=== PATIENT | female | born 2000 | race Caucasian/White ===

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

== ENCOUNTER 2022-06-23 14:27 | Emergency (ER) | payer MEDICAID, SELFPAY ==
[2022-06-23 15:00] VITALS: BP 118/80; PULSE 82; RESP 18; TEMP 36.6; O2SAT 100; BMI 26.4
--- NOTE | 2022-06-23 15:05 | ED.GENADULT ---
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 She was seen by an Urgent Care and prescribed keflex. There has been no improvement. She states the area has gotten increasingly tender and large. It is red and warm. She thinks it might have been a little bit of drainage from the area but it is too tender for her to try to express any pus. She denies any fever or chills. No history of IVDA. <FRANKO Chauhan - Last Filed: 06/23/22 16:41> complaint: left upper thigh abscess <FRANKO Chauhan - Last Filed: 06/23/22 16:41> Onset (ago): day(s) (6) <RFANKO Chauhan - Last Filed: 06/23/22 16:41> Location: left and lower extremity <FRANKO Chauhan - Last Filed: 06/23/22 16:41> Radiation: non-radiation <FRANKO Chauhan - Last Filed: 06/23/22 16:41> Severity: moderate <FRANKO Chauhan Last Filed: 06/23/22 16:41> Severity scale (1-10): 7 <FRANKO Chauhan - Last Filed: 06/23/22 16:41> Quality: aching <FRANKO Chauhan - Last Filed: 06/23/22 16:41> Pain Consistency: constant <FRANKO Chauhan - Last Filed: 06/23/22 16:41> Relieving factors: immobilization and rest <FRANKO Chauhan - Last Filed: 06/23/22 16:41> Exacerbating factors: movement <FRANKO Chauhan - Last Filed: 06/23/22 16:41> Associated symptoms: denies other symptoms <FRANKO Chauhan - Last Filed: 06/23/22 16:41> Treatments prior to arrival: other (Keflex) <FRANKO Chauhan - Last Filed: 06/23/22 16:41> Related Data Home medications: Previous Rx's Medication Instructions Recorded doxycycline hyclate 100 mg tablet 100 mg PO BID 7 days #14 tabs 06/23/22 <Fernando Lisa MD - Last Filed: 06/23/22 15:08> Allergies/adverse reactions: Allergies Allergy/AdvReac Type Severity Reaction Status Date / Time No Known Allergies Allergy Unverified 04/18/20 17:20 <Fernando Lisa MD - Last Filed: 06/23/22 15:08> Review of Systems Review of Systems: Constitutional: No Fever, No Chills Cardiovascular: No Chest Pain, No SOB Gastrointestinal: No Nausea, No Vomiting Musculoskeletal: No joint pain, No Myalgias Skin: +Skin Lesions, No rash Neuro: No Weakness Psych: + Anxiety/Panic Heme/Lymph: No Bruising, No Lymphadenopathy <FRANKO Chauhan - Last Filed: 06/23/22 16:41> [facility] Social History Social History: Social History Advance Directives: No Advance Directives Information Provided: No <Fernando Lisa MD - Last Filed: 06/23/22 15:08> Physical Exam ED Vital Signs: Vital Signs - 24 hr 06/23/22 15:00 Temperature 97.9 F Pulse Rate 82 Respiratory Rate 18 Blood Pressure 118/80 Pulse Oximetry 100 Oxygen Delivery Method Room Air BMI result Body Mass Index 26.4 <Fernando Lisa MD - Last Filed: 06/23/22 15:08> Vital Signs - 24 hr 06/23/22 15:00 Temperature 97.9 F Pulse Rate 82 Respiratory Rate 18 Blood Pressure 118/80 Pulse Oximetry 100 Oxygen Delivery Method Room Air BMI result Body Mass Index 26.4 <FRANKO Chauhan - Last Filed: 06/23/22 16:41> Appearance: Alert. Oriented X3. No acute distress. HEENT: normal inspection CVS: Normal heart rate and rhythm. Pulses normal. Respiratory: No respiratory distress. Skin: Skin warm and dry. Normal skin color. Normal skin turgor. No rashes. Extremities: Left upper inner thigh with a approximately 6 cm area of tenderness, erythema and warmth, centrally there is an area of fluctuance and dry discharge, dark in color. Induration approximately 1-2 cm surrounding the fluctuant area circumferentially. Neuro: Oriented X 3. Grossly normal, nonfocal, anxious. <FRANKO Chauhan - Last Filed: 06/23/22 16:41> Course Reevaluation(s) Reevaluation #1: 21 yo female with PMH of MRSA c/o sore on left leg. Patient seen yesterday at [facility] and prescribed keflex, but no antibiotics with MRSA coverage. Here today with increased pain, not improving. MRSA swab ordered <Fernando Lisa MD - Last Filed: 06/23/22 15:08> Time: 15:07 <Fernando Lisa MD - Last Filed: 06/23/22 15:08> Reevaluation #2: 21-year-old female pen to the ER for evaluation of an abscess on her left upper thigh. There is surrounding cellulitic changes. Amenable to incision and drainage today. History of MRSA in the past so will treat as such. No signs or symptoms of systemic illness. <FRANKO Chauhan - Last Filed: 06/23/22 16:41> Reevaluation #3: Started on doxycycline. Tolerated procedure well. Stable for discharge home. Return precautions were discussed. <FRANKO Chauhan - Last Filed: 06/23/22 16:41> Medications Administered Discontinued Medications Generic Name Dose Route Start Last Admin Trade Name Freq PRN Reason Stop Dose Admin Doxycycline Monohydrate 100 mg 06/23/22 15:26 06/23/22 15:39 Doxycycline Monohydrate 100 Mg Capsule PO 06/23/22 15:27 100 mg ONCE ONE Administration Ibuprofen 600 mg 06/23/22 15:26 06/23/22 15:39 Ibuprofen 600 Mg Tablet PO 06/23/22 15:27 600 mg ONCE ONE Administration <Fernando Lisa MD - Last Filed: 06/23/22 15:08> Medications Administered Discontinued Medications Generic Name Dose Route Start Last Admin Trade Name Rosales LOMAX Reason Stop Dose Admin Doxycycline Monohydrate 100 mg 06/23/22 15:26 06/23/22 15:39 Doxycycline Monohydrate 100 Mg Capsule PO 06/23/22 15:27 100 mg ONCE ONE Administration Ibuprofen 600 mg 06/23/22 15:26 06/23/22 15:39 Ibuprofen 600 Mg Tablet PO 06/23/22 15:27 600 mg ONCE ONE Administration <FRANKO Chauhan - Last Filed: 06/23/22 16:41> Procedures Abscess I/D Site: lower extremity <FRANKO Chauhan - Last Filed: 06/23/22 16:41> Side (if applicable): left <FRANKO Chauhan - Last Filed: 06/23/22 16:41> Local Anesthetic: lidocaine 1% <FRANKO Chauhan - Last Filed: 06/23/22 16:41> Amount of anesthesia used (mL): 1 <FRANKO Chauhan - Last Filed: 06/23/22 16:41> Technique: incised with blade <FRANKO Chauhan - Last Filed: 06/23/22 16:41> Sent for culture/gram staining?: No <FRANKO Chauhan - Last Filed: 06/23/22 16:41> Irrigation: Yes <FRANKO Chauhan - Last Filed: 06/23/22 16:41> Packing used?: none <FRANKO Chauhan - Last Filed: 06/23/22 16:41> Critical Care Time Critical Care Time Critical Care Time: No <FRANKO Chauhan - Last Filed: 06/23/22 16:41> Discharge Plan Discharge Clinical Impression: Abscess of left thigh <Fernando Lisa MD - Last Filed: 06/23/22 15:08> Patient Disposition: Home, Self-Care <Fernando Lisa MD - Last Filed: 06/23/22 15:08> Instructions: Abscess Incision and Drainage (DC) <Fernando Lisa MD - Last Filed: 06/23/22 15:08> Additional Instructions: Take the prescribed doxycycline starting tomorrow morning. Your given 1st dose today in the ER. Use warm compresses to the area several times per day. Continue taking her previously prescribed Keflex. Take Tylenol Motrin as needed for pain. If you develop new or worsening symptoms call 911 or come back to the ER for further evaluation. <Fernando Lisa MD - Last Filed: 06/23/22 15:08> Prescriptions: New doxycycline hyclate 100 mg tablet 100 mg PO BID 7 Days Qty: 14 0RF <Fernando Lisa MD - Last Filed: 06/23/22 15:08> Interventions: ED Discharge Assessment Last Done: 06/23/22 16:01 <Fernando Lisa MD - Last Filed: 06/23/22 15:08> Discharge Date/Time: 06/23/22 16:02 <Fernando Lisa MD - Last Filed: 06/23/22 15:08>
[2022-06-23] MEDS: Doxycycline Monohydrate 100 MG CAPSULE PO (15:39)
[2022-06-23] MEDS: Ibuprofen 600 MG TABLET PO (15:39)
--- NOTE | 2022-06-23 16:01 | PC.NURSE ---
tolerated procedure pretty well, had pain, medicated as ordered, skin wpd
== END 2022-06-23 16:02 | disposition home or self-care (01) ==
PROVIDERS: Emergency Provider Emergency Medicine
DX: L02.416 Cutaneous abscess of left lower limb (principal)
CPT/HCPCS: 10060; 87081; 99283